=== PATIENT | male | born 1985 | race African-American/Black ===

== ENCOUNTER 2017-04-18 13:25 | Emergency (ER) | payer OTHER ==
[~2017-04-18] VITALS: Ht 190.5 cm; Wt 120.0 kg
[~2017-04-18 13:25] MED LIST: AMOXICILLIN500 MG PO; BIAXIN XL500 MG PO; DILAUDID 2MG2 MG/TA1 PO; KEFLEX500 M1 PO; NO; NO HOME MEDS; OMEPRAZOLE20 M1 PO; PENICILLN VK500 MG PO; PRILOSEC20 MG/CAP OR; ZOFRAN ODT8 MG SL
[2017-04-18] MEDS ORDERED: NORCO1 TA1 PO (15:30)
[2017-04-18] MEDS ORDERED: BACTRIM DS1 TAB PO (15:30)
[2017-04-18 15:40] VITALS: BP 156/98
== END 2017-04-18 15:42 | disposition home or self-care (01) | DRG 603 ==
LOC: ED 13:25
PROC: 0X940ZZ Drainage of Right Axilla, Open Approach (ICD-10-PCS; principal; 2017-04-18)
DX: L02.411 Cutaneous abscess of right axilla (principal); B96.4 Proteus (mirabilis) (morganii) as the cause of diseases classified elsewhere

== ENCOUNTER 2017-04-20 08:33 | Emergency (ER) | payer OTHER ==
[~2017-04-20] VITALS: Ht 190.5 cm; Wt 113.6 kg
[~2017-04-20 08:33] MED LIST changes: +BACTRIM DS1 TAB PO; +NORCO1 TA1 PO
[2017-04-20 08:52] VITALS: BP 142/72
== END 2017-04-20 09:00 | disposition home or self-care (01) | DRG 951 ==
LOC: ED 08:33
DX: Z48.01 Encounter for change or removal of surgical wound dressing (principal)

== ENCOUNTER 2018-08-26 00:09 | Emergency (ER) | payer SELFPAY ==
[~2018-08-26] VITALS: Ht 190.5 cm; Wt 118.4 kg
[2018-08-26] MEDS ORDERED: VOLTAREN - GENE75 MG PO (00:38)
[2018-08-26 01:16] VITALS: BP 141/76
== END 2018-08-26 01:16 | disposition home or self-care (01) | DRG 563 ==
LOC: ED 00:09
DX: S39.012A Strain of muscle, fascia and tendon of lower back, initial encounter (principal); X58.XXXA Exposure to other specified factors, initial encounter

== ENCOUNTER 2020-05-14 14:47 | Emergency (ER) | payer SELFPAY ==
[~2020-05-14] VITALS: Ht 190.5 cm; Wt 110.0 kg
[~2020-05-14 14:47] MED LIST changes: +VOLTAREN - GENE75 MG PO
[2020-05-14] MEDS ORDERED: ATORVASTATIN CA20 MG PO (15:29)
[2020-05-14] MEDS ORDERED: LOSARTAN/HCT1 TA2 PO (15:29)
[2020-05-14 16:10] VITALS: BP 162/77
--- NOTE | 2020-05-16 16:41 | NUR ---
Notified patient of positive Covid results. Advised patient to quarantine until contacted by the [facility] [place] with further instructions. Advised patient to return to ED with difficulty breathing or other urgent needs. Patient denies dyspnea. Patient c/o cough. Patient verbalizes understanding.
== END 2020-05-14 16:10 | disposition home or self-care (01) | DRG 179 ==
LOC: ED 14:47
DX: U07.1 COVID-19 (principal)

== ENCOUNTER 2020-05-18 11:48 | Emergency (ER) | payer SELFPAY ==
[~2020-05-18] VITALS: Ht 190.5 cm; Wt 120.0 kg
[~2020-05-18 11:48] MED LIST changes: +ATORVASTATIN CA20 MG PO; +LOSARTAN/HCT1 TA2 PO
[2020-05-18] MEDS ORDERED: AMOX/K CLAV875 M1 PO ×2 (12:20)
[2020-05-18] MEDS ORDERED: ZPAK PO ×2 (12:20)
[2020-05-18 12:40] VITALS: BP 131/71
== END 2020-05-18 12:40 | disposition home or self-care (01) | DRG 177 ==
LOC: ED 11:48
DX: U07.1 COVID-19 (principal); J12.89 Other viral pneumonia

== ENCOUNTER 2020-06-01 09:16 | Emergency (ER) | payer SELFPAY ==
[~2020-06-01] VITALS: Ht 190.5 cm; Wt 127.3 kg
[~2020-06-01 09:16] MED LIST changes: +AMOX/K CLAV875 M1 PO; +ZPAK PO
[2020-06-01 10:37] VITALS: BP 148/103
--- NOTE | 2020-06-04 08:56 | NUR ---
Notified patient of positive Covid results. Advised to continue to quarantine and return to Ed with increase of symptoms. Patient verbalized understanding.
== END 2020-06-01 10:41 | disposition home or self-care (01) | DRG 179 ==
LOC: ED 09:16
DX: U07.1 COVID-19 (principal); I10 Essential (primary) hypertension

== ENCOUNTER 2020-11-03 21:15 | Inpatient (IN) | payer SELFPAY ==
[~2020-11-03] VITALS: Ht 182.9 cm; Wt 125.3 kg
--- NOTE | 2020-11-03 21:23 | NUR ---
PATIENT TO ROOM 10 FOR BEDSIDE TRIAGE.
[2020-11-03] MEDS ORDERED: HYZAAR1 TA2 PO (21:32)
[2020-11-03] MEDS ORDERED: LIPITOR20 MG PO (21:32)
[2020-11-03 22:30] LABS: HEMATOCRIT 44.9 % (39.0-50.0); IMMATURE GRANULOCYTES 0.3 % (0.0-5.0); MEAN CELL VOLUME 83.8 fL CALC (80.0-100.0); MEAN CORPUSCULAR HGB 26.1 pG CALC (26.0-32.0); MEAN CORPUSCULAR HGB CONC 31.2 g/dL CAL (32.0-36.0); NEUT# 8.38 thou/uL (1.82-7.42); RED BLOOD COUNT 5.36 mill/uL (4.70-6.10); RED CELL DISTRI WIDTH 14.8 % (11.5-15.5)
--- NOTE | 2020-11-03 22:30 | NUR ---
PT STARTED ON GASTROGRAFFIN, ADDITIONAL CUPS DUE AT 2300 AND 2330
[2020-11-03 22:32] LABS: URINE BILIRUBIN - DIPSTICK NEGATIVE (NEGATIVE); URINE BLOOD DIPSTICK NEGATIVE (NEGATIVE); URINE COLOR YELLOW; URINE GLUCOSE - DIPSTICK NEGATIVE (NEGATIVE); URINE KETONE NEGATIVE (NEGATIVE); URINE LEUK ESTERASE NEGATIVE (NEGATIVE); URINE NITRITE - DIPSTICK NEGATIVE (Negative); URINE PROTEIN - DIPSTICK NEGATIVE (NEG-TRACE); URINE SPECIFIC GRAVITY 1.025; URINE UROBILINOGEN - DIPSTICK 0.2 E.U./dL (0.2)
[2020-11-03 22:46] LABS: ALBUMIN 4.4 g/dL (3.2-5.0); ALKALINE PHOSPHATASE 57 u/l (38-126); AMYLASE 55 u/l (30-110); ANION GAP 11 (6-22 (CALC)); BILIRUBIN, TOTAL 0.5 mg/dL (0.0-1.4); BUN 13 mg/dL (9-20); BUN/CREATININE RATIO 10 (12-20 (CALC)); CARBON DIOXIDE 32 mmol/l (22-30); CHLORIDE 101 mmol/l (95-108); CREATININE 1.3 mg/dL (0.7-1.3); GFR > 60 ML/MIN (>=60 (CALC)); GFR FOR AFR.AMER. > 60 ML/MIN (>=60 (CALC)); LIPASE 75 u/l (23-300); POTASSIUM 4.2 mmol/l (3.5-5.1); SGOT/AST 35 u/l (17-59); SODIUM 140 mmol/l (137-146); TOTAL PROTEIN 7.6 g/dL (6.3-8.2)
--- NOTE | 2020-11-03 23:30 | NUR ---
PT PAIN FREE. DONE WITH CONTRAST. PT TOLERATED WELL.
[2020-11-04] VITALS (10 sets, daily range): BP systolic 106–132; BP diastolic 52–73
--- NOTE | 2020-11-04 00:09 | NUR ---
PT COMPLETED ALL CUPS OF CONTRAST. PAIN FREE AT THIS TIME. WAITING ON CT
--- NOTE | 2020-11-04 01:03 | NUR ---
PT BACK FROM CT, WAITING ON RESULTS.
--- NOTE | 2020-11-04 01:30 | NUR ---
PT HAS APPENDICITIS. PT RESTING QUIETLY STILL NO PAIN.
--- NOTE | 2020-11-04 02:37 | NUR ---
ZOSYN UP PER ORDER. PT RESTING QUIETLY, WAKES EASILY. STILL PAIN FREE.
--- NOTE | 2020-11-04 03:00 | NUR ---
REPORT GIVEN TO KATHRINE JORDAN. [facility]
--- NOTE | 2020-11-04 03:15 | NUR ---
Admission Note Report Given to: KATHRINE JORDAN. Transported by: X Wheelchair Stretcher Transported with: X Nurse Transporter X Patent IV O2 Pcu Rn Location: ICU X MS2
--- NOTE | 2020-11-04 04:00 | NUR ---
PATIENT ADMITTED FROM ER VIA WHEELCHAIR WITH ER STAFF IN ATTENDANCE. PATIENT ABLE TO TRANSFER TO BED. PATIENT IS DROWSY BUT AROUSABLE. VS TAKEN AND RECORDED. PATIENT IS NPO AT THIS TIME. IV SITE TO LAC AND IVF NS HUNG AND INFUSING AT 125CC/HR. ABD IS SOFTLY DISTENDED WITH BS+. PATIENT STATES LAST BM WAS YESTERDAY. DENIES ANY DIFFICULTY WITH URINATION. LUNGS ARE CLEAR. NO PERIPHERAL EDEMA NOTED. PULSES ARE PALPABLE. DR. BRUCE TO SEE THIS MORNING. ORIENTED TO ROOM AND SURROUNDINGS. INSTRUCTED ON USE OF NURSE CALL LIGHT, TV REMOTE AND PHONE-PATIENT IS DROWSY WILL NEED REINFORCED. EYES ARE VERY RED. NOISY BREATHING NOTED WHEN SLEEPING. CALL LIGHT IN REACH. WILL CONT TO MONITOR.
--- NOTE | 2020-11-04 07:00 | NUR ---
SHIFT CHANGE REPORT, PT SLEEPING BUT AWAKENED TO VERBAL STIMULI, ORIENTED, DENIES PAIN, IVF INFUSING, CALL BAÑUELOS IN REACH.
--- NOTE | 2020-11-04 10:01 | NUR ---
OR STAFF RECEIVED PT AND TRANSPORTED OFF UNIT VIA STRETCHER TO PROCEDURE.
--- NOTE | 2020-11-04 12:51 | NUR ---
TRANSPORTED VIA STRETCHER TO ROOM BY OR STAFF, ARRIVED ON UNIT @ 1245, GROGGY BUT ORIENTED X 3, DENIES PAIN. BEDSIDE REPORT GIVEN, STAFF REPORTED 10CC EBL, 1205CC IV FLUIDS IN. INCISION X 3 TO ABDOMEN WITH 2X2 SECURED WITH DERMABOND, O2 @ 2L VIA NC IN PLACE, SCD APPLIED, VITAL SIGNS BEING MONITORED, CALL BAÑUELOS IN REACH, WILL CONTINUE TO MONITOR.
--- NOTE | 2020-11-04 20:05 | NUR ---
PATIENT AWAKE ALERT AND ORIENTEDX3 SITTING ON THE SIDE OF THE BED. PATIENT DECLINES ANY PAIN MEDS AT THIS TIME-STATES THAT HE IS OK. PATIENT INFORMED THAT HE DOES HAVE PAIN MEDS ORDERED IF HE NEEDS IT. IS ENCOURAGED Q1H WHILE AWAKEX REPS OF 10. IV SITE TO LAC INTACT WITH IVF NS PATENT AND INFUSING AT 125CC/HR. SITE IS HEALTHY. TAKING PO FLUIDS AND Richi HARDY WELL-DENIES ANY NAUSEA AT THIS TIME. CALL LIGHT IN REACH. WILL CONT TO MONITOR.
--- NOTE | 2020-11-04 23:26 | NUR ---
IV SITE TO LAC DISLODGED AND D/C'ED-CATH INTACT. NEW IV SITE STARTED TO RAC #22 GAUGE WITH GOOD BLOOD RETURN. IVF NS PATENT AND INFUSING AT 125CC/HR. CONT TO TAKE PO FLUIDS WELL-TOLERATING WELL. VOIDED 600CC OF CLEAR YELLOW URINE. CALL LIGHT IN REACH. WILL CONT TO MONITOR.
--- NOTE | 2020-11-04 23:55 | NUR ---
PATIENT RESTING IN BED-ZOSYN HUNG ORDERED. PATIENT MEDICATED FOR 5/10 POST-OP ABD PAIN WITH TORADOL 30MG IVP. CALL LIGHT IN REACH. WILL CONT TO MONITOR.
[2020-11-05 01:00] VITALS: BP 122/62
[2020-11-05 04:00] VITALS: BP 111/57
--- NOTE | 2020-11-05 04:00 | NUR ---
PATIENT RESTING IN BED-STATES THAT HE DID GET SOME RELIEF FROM TORADOL GIVEN EARLIER FOR PAIN. IVF NS HUNG AND INFUSING AT 125CC/HR VIA VIA RAC SITE. VOIDED 400CC OF CLEAR YELLOW URINE IN URINAL. CALL LKLANE IN REACH. WILL CONT TO MONITOR.
[2020-11-05 07:44] VITALS: BP 124/68
--- NOTE | 2020-11-05 07:44 | NUR ---
RECIEVED REPORT FROM KATHRINE JORDAN. PT RESTING IN SEMI FOWLERS POSITION UPON ENTERING ROOM. INTRODUCED SELF TO PT AND DISCUSSED POC. PT IS A/O X3. ASSESSMENT AND VITALS OBTAINED BP 124/68, HR 74, O2 96% ON ROOM AIR. RESPIRATIONS ARE EVEN AND UNLABORED. HEART RHYTHM IS NORMAL. BOWEL SOUNDS ARE ACTIVE IN ALL QUADRANTS, LAST REPORTED BM 11/03/2020. RADIAL AND PEDAL PULSES ARE STRONG. #22G IN RAC RUNNING WITH IVF PER ORDER, SITE APPEARS HEALTHY AND PATENT. PT COMPLAINS OF 4/10 PAIN IN ABD, TORADOL TO BE ADMINISTERED. DRESSING REMAINS CDI. PT DENIES ANY OTHER NEEDS AT THIS TIME. ALL SAFETY PRECAUTIONS ARE IN PLACE WIHT ARNULFO LIGHT IN REACH. WILL CONTINUE TO MONITOR
--- NOTE | 2020-11-05 08:35 | NUR ---
TORADOL ADMINISTERED OF 4/10 PAIN. RESPIRATIONS REMAINS EVEN AND UNLABORED WITH NO SIGNS OF DISTRESS. ALL SAFTEY PRECAUTIONS ARE IN PLACE WIHT CALL LIGHT IN REACH. WILL CONTINUE TO MONITOR
--- NOTE | 2020-11-05 09:45 | NUR ---
[facility] AND HAVE PT FOLLOW UP IN 2 WEEKS AT [place] LOCATION.
--- NOTE | 2020-11-05 10:09 | NUR ---
DRESSING CHNAGED. 2X2 APPLIED WITH TEGADERM. PT TOLERATED WELL. DRESSING CDI AT THIS TIME.
--- NOTE | 2020-11-05 10:30 | NUR ---
DR BRUCE CONTACTED ON NEED FOR DISCHARGE INSTRUCTIONS. TEO STATED " I CANT GET INTO THE [facility] IN [place]. CAN YOU ASK THE ANRP THERE." POOL,ANRP NOTFIED STATING HE WAS UNABLE TO DUE TO NOT SEEING PATEINT. SUPER VISIOR NOTFIED.
--- NOTE | 2020-11-05 10:40 | NUR ---
INFORMED BY TEMPLATE INSPECTOR THAT DISCHARGE NOTED WOULD HAVE TO BE MADE.
--- NOTE | 2020-11-05 10:57 | NUR ---
Discharged to: Home Discharged via: Wheelchair Accompanied by: staff D/C Condition: stable Diet: Regular Diet modification: Activity: As tolerated Home Health: NONE Follow up appointment: FOLLOW UP WITH DR BRUCE IN [address] [facility] Special instructions: Medications: SEE MEDICATION RECONCILIATION FORM Prescriptions Given: Please notify your physician if you received either one of these vaccinations: Influenza Vaccine - Date: Pneumococcal Vaccine - Date: Patient Education Materials Provided: Yes - Food and Drug Interaction Guide No - Anticoagulation Education Booklet Contains the following information: 1. Compliance issues 2. Dietary advice 3. Follow up monitoring 4. Potential for adverse drug reactions and interactions Yes - Smoking Cessation Booklet IF SYMPTOMS WORSEN, OR IF YOU HAVE ADDITIONAL QUESTIONS, PLEASE CONTACT YOUR PERSONAL PHYSICIAN OR SEEK EMERGENCY CARE. CALL YOUR PHYSICIAN IF YOU DO NOT GET RELIEF FROM THE PAIN MEDICATIONS PRESCRIBED, OR IF THE INTENSITY OF PAIN INCREASES, OR IF PAIN IS INTERFERING WITH ACTIVITY OR REST. IF YOU SMOKE, YOU NEED TO QUIT. IT IS GOOD FOR YOU AND EVERYONE AROUND YOU! Your physician and [facility] care about you and your health. The facts are clear. Smoking causes 1 out of 5 deaths in the [place] each year. It is the major preventable cause of emphysema, lung cancer, chronic bronchitis, heart disease and stroke. Quitting is one of the best things you can ever do for yourself and those you love. What better time to quit than now! You've already been cigarette free during your stay. Studies have shown that the first 48 hours of quitting are the toughest. Just a few of the benefits your body begins to experience are blood pressure returns to normal, the carbon monoxide level in your blood drops to normal, your chance of heart attack decreases, and your ability to smell and taste is enhanced. Here are some resources that you may find helpful: [place] [employer] [place] [employer] www.lungusa.org www.cancer.org [place] [employer] [place] [employer] of Health (Tobacco Prevention and Control Program) www.americanheart.org www.marcela.[facility].fl.us Finally don't forget that your doctor may be able to help you. Whichever method you choose will be good for you. IF YOU HAVE A DIAGNOSIS OF CONGESTIVE HEART FAILURE, THERE ARE SEVERAL ADDITIONAL INSTRUCTIONS FOR YOU TO FOLLOW UPON DISCHARGE FROM THE HOSPITAL. Weigh yourself every day and if weight gain is greater than 2 pounds in a day, call your physican. If you experience worsening symptoms such as: Problems with breathing or shortness of breath Ankle/foot/leg swelling Unexplained weight gain greater than 2 pounds Call your physician or come to the emergency room. IF YOU HAVE A DIAGNOSIS OF STROKE, THERE ARE SEVERAL ADDITIONAL INSTRUCTIONS FOR YOU TO FOLLOW: A stroke occurs when something happens to interrupt the steady flow of blood to the brain, like a clot or a burst in a blood vessel. Brain cells quickly begin to . These INCREASE your chance of having a STROKE: * Smoking * High blood pressure * Diabetes * Obesity WARNING SIGNS OR SYMPTOMS: * Sudden weakness on one side of body. * Sudden confusion, trouble speaking or understanding. * Sudden trouble seeing. * Sudden trouble walking or loss of balance. * Sudden severe headache with no known cause. CALL At Any Sign of Stroke. You can beat a stroke. Disabilities can be prevented or limited, but you have must go to the Emergency Department immediately. Go in an Ambulance. Save Time. Be Seen Faster! If you were admitted to the hospital for a stroke After DISCHARGE you must: * Keep ALL follow up appointments. * Take your medications as ordered by your doctor. * Do not take any other drugs without checking with your doctor first. * Do not drive unless your doctor says it is okay. * Call your doctor with any questions or concerns. IF YOU WERE DISCHARGED ON COUMADIN/WARFARIN ANTICOAGULATION THERAPY, THERE ARE SEVERAL ADDITIONAL INSTRUCTIONS FOR YOU TO FOLLOW: Anticoagulants are medications that help prevent blood clots. They are often prescribed for people with certain heart, lung and blood vessel diseases to help prevent heart attacks and strokes. IMPORTANT Anticoagulation medications have been used for many years, but it can be difficult to manage. That's because many factors can affect how they work-including small changes in dose or dose timing, what you eat or drink, other medications and stress. You and your doctor must work closely together to manage this important medication. * Take your medicine EXACTLY as instructed by your doctor. * You must have your blood drawn for PT/INR to monitor your medication. * Do not take any new medications, vitamins or herbal supplements without asking your doctor first. FOODS: * Eat the same amount of foods that contain Vitamin K every day. * Avoid or limit alcohol. * Avoid major changes in diet or notify your doctor first. FOLLOW UP MONITORING: See your physician within one week to monitor your condition. You will need to have blood tests performed to monitor the medication. DRUG INTERACTIONS: * Diet and medications can affect the PT/INR level. * Do not take or discontinue any medication or over the counter medication unless your doctor okays. * Warfarin/Coumadin increases the risk of bleeding. CALL YOUR PHYSICIAN IF: If you notice any signs of increased bleedin. Excessive bruising. 2. Abnormal bleeding from nose or gums. 3. [place], red or dark brown urine. 4. Minor bleeding or bright red blood from the bowel. CALL 911 OR GO TO THE HOSPITAL IF: 1. You have black tarry stools. 2. Sudden dizziness, faintness or weakness. 3. Cold or numbness in arm or leg. 4. Sudden chest pain. 5. Trouble talking or moving one side of body. 6. Coughing or vomiting bright red blood. 7. Severe headache or stomach pain. 8. Serious fall or hit to the head. Visit our website at [email or web address] You are going home today. Depending on your insurance coverage, you may be receiving a bill from the hospital for your hospital stay. If you have any question about your bill, please call the Business Office at [phone] or contact us at our web address: [email or web address]. If applicable, I have received my medication information as recommeded by my provider upon discharge. I have read and understand the above discharge instructions. Pt Signature: Date: Time: Witnessed by: Date: Time: Complete the record of communication to the next provider below. These discharge instructions, including discharge medications, is to be faxed to the next provider at the time of the patient's discharge. ____These instructions faxed to next Provider (Provider Name) on (Date) @ (Time) . ____The second provider involved in patient care following discharge has been faxed this information. These instructions faxed to (Provider-Home Health, Physical Therapy, Agency) on (Date) @ (Time) . OR ____Patient unable/unwilling to verbalize who the next provider of care will be, instructed patient to take these instructions to next appointment with healthcare provider.
--- NOTE | 2020-11-05 11:30 | NUR ---
PT EDUCATED ON DISCHARGE INSTRUCTIONS. PT VERBALIZED UNDERSTANDING. IV REMOVED WITH CATHATER STILL INTACT.PT TOELRATED WELL. HOME MEDICATIONS GIVEN BACK TO PATENT.WAITING FOR PT TO GET DRESSED. ALL SFAETY PRECAUTIONS ARE IN PLACE WIHT CALL LIGHT IN REACH. WILL CONTINUE TO MONITOR
--- NOTE | 2020-11-05 11:37 | NUR ---
Discharge instructions given. Patient verbalizes understanding of same. Discharged in stable condition via Wheelchair to Home with staff. All belongings sent with pt. PT DSICHARGED IN STABLE CONDITION VIA WHEELCHAIR ACCOMPAINED BY OMI SERRANO WITH ALL BELONGINGS INCLUDING HOME MEDICATIONS AND DISCHARGE INSTRUCTIONS TO FOLLOW UP WITH DR BRUCE IN [place] OFFICE IN 2 WEEKS.
== END 2020-11-05 11:35 | disposition home or self-care (01) | DRG 343 ==
LOC: ED 21:15 → ED-I 11-04 01:35 → ED 11-04 01:37 → MS2 11-04 01:38
PROVIDERS: Family Medicine; ADMIT Surgery; ATTEND Surgery
PROC: 0DTJ4ZZ Resection of Appendix, Percutaneous Endoscopic Approach (ICD-10-PCS; principal; 2020-11-04)
DX: K35.80 Unspecified acute appendicitis (principal); I10 Essential (primary) hypertension; Z20.828 Contact with and (suspected) exposure to other viral communicable diseases
CPT/HCPCS: J0131; J2710; Q9967

== ENCOUNTER 2021-07-22 10:35 | Emergency (ER) | payer OTHER ==
[~2021-07-22] VITALS: Ht 182.9 cm; Wt 127.0 kg
[~2021-07-22 10:35] MED LIST changes: +HYZAAR1 TA2 PO; +LIPITOR20 MG PO
[2021-07-22] MEDS ORDERED: TESSALON PERLE100 MG PO (12:14)
[2021-07-22 12:20] VITALS: BP 159/89
== END 2021-07-22 12:20 | disposition home or self-care (01) | DRG 153 ==
LOC: ED 10:35
DX: J06.9 Acute upper respiratory infection, unspecified (principal); I10 Essential (primary) hypertension; E78.5 Hyperlipidemia, unspecified; Z20.822 Contact with and (suspected) exposure to COVID-19

== ENCOUNTER 2022-03-13 21:53 | Emergency (ER) | payer SELFPAY ==
[2022-03-13] VITALS (7 sets, daily range): BP systolic 148–171; BP diastolic 90–105
[~2022-03-13] VITALS: Ht 182.9 cm; Wt 127.0 kg
[~2022-03-13 21:53] MED LIST changes: +TESSALON PERLE100 MG PO
[2022-03-13] MEDS ORDERED: ULTRAM50 M1 PO (23:15)
== END 2022-03-13 23:53 | disposition home or self-care (01) | DRG 563 ==
LOC: ED 21:53
PROC: 2W3EX1Z Immobilization of Right Hand using Splint (ICD-10-PCS; principal; 2022-03-13)
DX: S62.304A Unspecified fracture of fourth metacarpal bone, right hand, initial encounter for closed fracture (principal); I10 Essential (primary) hypertension; E78.00 Pure hypercholesterolemia, unspecified; W22.09XA Striking against other stationary object, initial encounter; Y92.89 Other specified places as the place of occurrence of the external cause; Y99.0 Civilian activity done for income or pay

== ENCOUNTER 2022-11-27 07:31 | Emergency (ER) | payer OTHER ==
[~2022-11-27] VITALS: Ht 182.9 cm; Wt 118.2 kg
[2022-11-27] VITALS (7 sets, daily range): BP systolic 131–148; BP diastolic 82–95
[~2022-11-27 07:31] MED LIST changes: +ULTRAM50 M1 PO
[2022-11-27] MEDS ORDERED: DOXYCYCLINE100 MG PO (09:07)
[2022-11-27] MEDS ORDERED: BROMPHEN/PSEUDO1 SYP PO (09:09)
== END 2022-11-27 09:28 | disposition home or self-care (01) | DRG 153 ==
LOC: ED 07:31
DX: J06.9 Acute upper respiratory infection, unspecified (principal); I10 Essential (primary) hypertension; E78.00 Pure hypercholesterolemia, unspecified; Z20.822 Contact with and (suspected) exposure to COVID-19

== ENCOUNTER 2022-12-10 11:11 | Emergency (ER) | payer OTHER ==
[~2022-12-10] VITALS: Ht 182.9 cm; Wt 117.0 kg
[~2022-12-10 11:11] MED LIST changes: +BROMPHEN/PSEUDO1 SYP PO; +DOXYCYCLINE100 MG PO
[2022-12-10 11:23] VITALS: BP 136/85
[2022-12-10 12:39] VITALS: BP 134/70
[2022-12-10] MEDS ORDERED: BENZONATATE200 MG PO (12:42)
[2022-12-10] MEDS ORDERED: FLONASE AL50 MCG/ACT (12:42)
[2022-12-10] MEDS ORDERED: ZYRTEC10 MG PO (12:42)
[2022-12-10 13:01] VITALS: BP 127/79
[2022-12-10 13:08] VITALS: BP 127/79
== END 2022-12-10 13:08 | disposition home or self-care (01) | DRG 203 ==
LOC: ED 11:11
DX: J45.901 Unspecified asthma with (acute) exacerbation (principal); I10 Essential (primary) hypertension; E78.00 Pure hypercholesterolemia, unspecified; Z20.822 Contact with and (suspected) exposure to COVID-19

== ENCOUNTER 2023-07-12 10:44 | Emergency (ER) | payer OTHER ==
[~2023-07-12] VITALS: Ht 182.9 cm; Wt 122.5 kg
[2023-07-12] VITALS (7 sets, daily range): BP systolic 109–146; BP diastolic 79–88
[~2023-07-12 10:44] MED LIST changes: +BENZONATATE200 MG PO; +FLONASE AL50 MCG/ACT; +ZYRTEC10 MG PO
[2023-07-12] MEDS ORDERED: TAM75CAP PO (13:00)
[2023-07-12] MEDS ORDERED: MEDROL16 MG PO (13:00)
== END 2023-07-12 13:15 | disposition home or self-care (01) | DRG 179 ==
LOC: ED 10:44
DX: U07.1 COVID-19 (principal); J10.1 Influenza due to other identified influenza virus with other respiratory manifestations; I10 Essential (primary) hypertension; E78.00 Pure hypercholesterolemia, unspecified

== ENCOUNTER 2024-08-09 14:05 | Emergency (ER) | payer OTHER ==
[~2024-08-09] VITALS: Ht 182.9 cm; Wt 130.0 kg
[~2024-08-09 14:05] MED LIST changes: +AMLODIPINE BESY10 MG PO; +MEDROL16 MG PO; +METFORMIN500 M2 PO; +PHILLIPS MOM311 MG PO; +TAM75CAP PO; +VITAMIN C + PO
[2024-08-09 15:00] VITALS: BP 131/88
[2024-08-09 15:15] VITALS: BP 146/84
[2024-08-09] MEDS ORDERED: KETOROLAC TROMETHAMINE 30 MG/ML SDV IM ONE (15:35)
[2024-08-09] MEDS ORDERED: NAPROXEN500 MG PO (15:45)
[2024-08-09 15:46] VITALS: BP 136/106
[2024-08-09 16:01] VITALS: BP 141/90
[2024-08-09 16:02] VITALS: BP 141/90
== END 2024-08-09 16:15 | disposition home or self-care (01) | DRG 563 ==
LOC: ED 14:05
DX: S93.601A Unspecified sprain of right foot, initial encounter (principal); I10 Essential (primary) hypertension; R73.03 Prediabetes; E78.00 Pure hypercholesterolemia, unspecified; X50.0XXA Overexertion from strenuous movement or load, initial encounter; Z79.84 Long term (current) use of oral hypoglycemic drugs